=== PATIENT | female | born 1980 | race African-American/Black ===

== ENCOUNTER 2019-04-22 05:09 | Emergency (ER) | payer OTHER ==
[~2019-04-22] VITALS: Ht 175.3 cm; Wt 88.5 kg
[2019-04-22] MEDS ORDERED: ACETAMINOPHEN 325MG TABLET PO ONE (06:30)
[2019-04-22] MEDS ORDERED: CYCLOBENZAPRINE 10MG TABLET PO SCH (06:30)
[2019-04-22] MEDS ORDERED: KETOROLAC 30MG/ML VIAL IM ONE (06:30)
[2019-04-22 08:11] VITALS: BP 110/66
== END 2019-04-22 08:29 | disposition home or self-care (01) ==
LOC: ER 05:09
DX: M54.9 Dorsalgia, unspecified (principal); F12.10 Cannabis abuse, uncomplicated; Z98.890 Other specified postprocedural states; M25.512 Pain in left shoulder
CPT/HCPCS: 71045; 96372; 99283; J1885